=== PATIENT | male | born 1990 | race Caucasian/White ===

== ENCOUNTER 2017-12-21 11:31 | Day surgery (SDC) | payer OTHER ==
[~2017-12-21 11:31] MED LIST: ACETAMINOPHEN 1000 MG/100 ML IVPB; CEFAZOLIN 1 GM INJ; CEFAZOLIN 2 GM/50 ML (PMX) 50 ML IVPB; LIDOCAINE 2% (SDV) 5 ML INJ; PROPOFOL 200 MG INJ; SOD CHLORIDE 0.9% 1,000 ML IV
[2017-12-21] MEDS ORDERED: ROCURONIUM 50 MG INJ (13:41)
[2017-12-21] MEDS ORDERED: BUPIVACAINE 0.5%/EPI (SDV) 30 ML INJ (13:43)
[2017-12-21] MEDS ORDERED: FENTAnyl 50 MCG/ML VIAL (13:45)
[2017-12-21] MEDS ORDERED: DIPHENHYDRAMINE 50 MG INJ IV (14:00)
[2017-12-21] MEDS ORDERED: HYDROmorphONE (0.2 MG/ML) 10ML SYG IV ×2 (14:00)
[2017-12-21] MEDS ORDERED: ALBUTEROL 0.083% (NEB) 2.5 MG/3 ML AMP HHN (14:00)
[2017-12-21] MEDS ORDERED: ONDANSETRON 4 MG INJ IV (14:00)
[2017-12-21] MEDS ORDERED: MEPERIDINE 25 MG INJ IV (14:00)
[2017-12-21] MEDS ORDERED: METOCLOPRAMIDE 10 MG INJ IV (14:00)
[2017-12-21] MEDS ORDERED: EPHEDrine SULFATE 50 MG/5 ML SYG IV (14:00)
[2017-12-21] MEDS ORDERED: KETOROLAC 30 MG INJ IV (14:00)
[2017-12-21] MEDS ORDERED: OXYCODONE/ACETAMINOPHEN (5/325) TAB PO ×2 (14:00)
[2017-12-21] MEDS ORDERED: hydrALAzine 20 MG INJ IV (14:00)
[2017-12-21] MEDS: BUPIVACAINE 0.25% (MPF) 30 ML INJ (14:21)
[2017-12-21] MEDS ORDERED: SUGAMMADEX SODIUM 200 MG/2 ML VIAL IV (14:27)
[2017-12-21] MEDS: HYDROmorphONE (0.2 MG/ML) 10ML SYG IV (15:11)
[2017-12-21] MEDS: HYDROCODONE/APAP (5/325) TAB PO (15:35)
== END 2017-12-21 17:20 | disposition home or self-care (01) ==
LOC: SDS 11:31
DX: K80.10 Calculus of gallbladder with chronic cholecystitis without obstruction (principal)
CPT/HCPCS: 47562; 88304

== ENCOUNTER 2018-01-15 17:27 | Emergency (ER) | payer OTHER ==
[2018-01-15 19:00] LABS: URINE BLOOD (Dip) POC Trace-lysed (NEGATIVE); URINE GLUCOSE (Dip) POC Negative (NEGATIVE); URINE KETONES (Dip) POC Negative (NEGATIVE); URINE LEUKOCYTE EST (Dip) POC Negative (NEGATIVE); URINE NITRITE (Dip) POC Negative (NEGATIVE); URINE TOTAL PROTEIN POC Negative (NEGATIVE)
[2018-01-15 19:24] LABS: URINE BLOOD (Dip) POC Trace-lysed (NEGATIVE); URINE GLUCOSE (Dip) POC Negative (NEGATIVE); URINE KETONES (Dip) POC Negative (NEGATIVE); URINE LEUKOCYTE EST (Dip) POC Negative (NEGATIVE); URINE NITRITE (Dip) POC Negative (NEGATIVE); URINE TOTAL PROTEIN POC Negative (NEGATIVE)
== END 2018-01-15 19:44 | disposition home or self-care (01) ==
LOC: FTE 17:27
DX: R68.83 Chills (without fever) (principal); I50.9 Heart failure, unspecified; Z90.49 Acquired absence of other specified parts of digestive tract
CPT/HCPCS: 81003; 87086; 99283